=== PATIENT | female | born 1940 | race Caucasian/White ===

== ENCOUNTER 2020-10-10 13:55 | Day surgery (SDC) | payer BC ==
[~2020-10-10] VITALS: Ht 157.5 cm; Wt 76.0 kg
[2020-10-10] VITALS (8 sets, daily range): BP systolic 141–164; BP diastolic 62–92
[2020-10-10] MEDS ORDERED: normal saline 1,000 ML IV SCH (14:50)
[2020-10-10] MEDS ORDERED: diphenhydrAMINE 25mg capsule PO PRN (14:50)
[2020-10-10] MEDS ORDERED: LORazepam 0.5 MG tablet PO PRN (14:50)
[2020-10-10] MEDS ORDERED: ROSU40TA22 PO (15:21)
[2020-10-10] MEDS ORDERED: CLOP75TA34 PO (15:21)
[2020-10-10] MEDS ORDERED: FENO160T PO (15:21)
[2020-10-10] MEDS ORDERED: CARV6.253 PO (15:21)
[2020-10-10] MEDS ORDERED: AMLO10TA13 PO (15:21)
[2020-10-10] MEDS ORDERED: LISI10TA27 PO (15:21)
[2020-10-10] MEDS ORDERED: TRAZ-251 PO (15:21)
[2020-10-10] MEDS ORDERED: INSU100V9 SUBCUT (15:21)
[2020-10-10] MEDS ORDERED: ASPI-611 PO (15:22)
[2020-10-10 15:45] LABS: BASOPHILS # (AUTO) 0.1 X10'3 (0-0.2); BASOPHILS % (AUTO) 1.2 % (0-1); EOSINOPHILS # (AUTO) 0.1 X10'3 (0-0.9); EOSINOPHILS % (AUTO) 1.1 % (0-6); HEMATOCRIT 39.9 % (35.0-45.0); HEMOGLOBIN 13.3 g/dl (12.0-16.0); LYMPHOCYTES # (AUTO) 1.9 X10'3 (1.1-4.8); LYMPHOCYTES % (AUTO) 19.6 % (21-51); MEAN CORPUSCULAR HEMOGLOBIN 29.7 PG (27.0-31.0); MEAN CORPUSCULAR HGB CONC 33.4 g/dL (33.0-36.5); MEAN CORPUSCULAR VOLUME 88.9 FL (78-98); MEAN PLATELET VOLUME 7.9 FL (7.4-10.4); MONOCYTES # (AUTO) 0.9 X10'3 (0-0.9); MONOCYTES % (AUTO) 8.8 % (2-12); NEUTROPHILS # (AUTO) 6.8 X10'3 (1.8-7.7); NEUTROPHILS % (AUTO) 69.3 % (42-75); PLATELET COUNT 273 X10'3 (140-440); RED BLOOD COUNT 4.49 X10'6 (4.20-5.60); RED CELL DISTRIBUTION WIDTH 13.9 % (11.5-14.5); WHITE BLOOD COUNT 9.8 X10'3 (4.5-11.0)
[2020-10-10 15:51] LABS: ALBUMIN 3.2 G/DL (3.4-5.0); ANION GAP 8 (8-16); BLOOD UREA NITROGEN 32 MG/DL (7-18); CALCIUM 9.3 MG/DL (8.5-10.1); CHLORIDE 99 MMOL/L (99-107); CREATININE 1.39 MG/DL (0.40-0.90); GLUCOSE 390 MG/DL (70-104); POTASSIUM 4.9 MMOL/L (3.5-5.1); SODIUM 134 MMOL/L (135-145); TOTAL CARBON DIOXIDE 26.8 MMOL/L (24-32); eGFR 36 ML/MIN
[2020-10-10 16:16] LABS: PARTIAL THROMBOPLASTIN TIME 27 SECONDS (22-32)
[2020-10-10] MEDS ORDERED: hydrALAZINE 20mg/ml inj. IV ONE (16:35)
[2020-10-10] MEDS ORDERED: LIDOcaine 1% (10mg/ml)w/preservative injection 20ml MDV ONE (17:06)
[2020-10-10] MEDS ORDERED: acetaminophen 325mg tablet PO PRN (17:20)
[2020-10-10] MEDS ORDERED: ondansetron/PF 4mg/2ml inj IV PRN (17:20)
[2020-10-10] MEDS ORDERED: OXAZEpam 15mg capsule PO PRN (17:20)
[2020-10-10] MEDS ORDERED: proCHLORperazine 10 MG/2 ml inj IV PRN (17:20)
[2020-10-10] MEDS ORDERED: HYDROcodone/acetaminophen 10/325mg tab PO PRN (17:20)
[2020-10-10] MEDS ORDERED: HYDROcodone/acetaminophen 5mg/325mg tablet PO PRN (17:20)
[2020-10-10] MEDS ORDERED: normal saline 1000ml 1,000 ML IV SCH (17:20)
== END 2020-10-10 19:50 | disposition home or self-care (01) ==
LOC: SSTAY O 13:55 → EDSTATUS 18:30 → SSTAY O 19:50
PROVIDERS: ATTEND Internal Medicine Interventional Cardiology
DX: I65.23 Occlusion and stenosis of bilateral carotid arteries (principal); I10 Essential (primary) hypertension; E11.9 Type 2 diabetes mellitus without complications; I08.0 Rheumatic disorders of both mitral and aortic valves; M81.0 Age-related osteoporosis without current pathological fracture; Z79.899 Other long term (current) drug therapy; Z86.73 Personal history of transient ischemic attack (TIA), and cerebral infarction without residual deficits; Z79.82 Long term (current) use of aspirin; Z79.01 Long term (current) use of anticoagulants; Z85.3 Personal history of malignant neoplasm of breast; Z79.4 Long term (current) use of insulin
CPT/HCPCS: 36223; 36415; 80048; 82948; 85025; 85610; 85730; 93005; C1760; C1769; C1894; J0360; J2001; 36227; A4620; A6258